=== PATIENT | female | born 1940 | race Caucasian/White ===

== ENCOUNTER 2018-04-30 14:20 | Inpatient (IN) | payer OTHER ==
[~2018-04-30] VITALS: Ht 162.6 cm; Wt 58.1 kg
[2018-04-30 14:59] LABS: ABSOLUTE BASOPHIL COUNT 0.1 /CUMM (0.0-0.2); ABSOLUTE EOSINOPHIL COUNT 0.1 /CUMM (0.0-0.7); ABSOLUTE GRANULOCYTE CT 4.5 /CUMM (1.4-6.5); ABSOLUTE LYMPH COUNT 1.7 /CUMM (1.2-3.4); ABSOLUTE MONOCYTE COUNT 0.5 /CUMM (0.10-0.60); BASOPHIL % 0.8 % (0.0-2.0); EOSINOPHIL % 1.2 % (0-5); GRANULOCYTE % 65.3 % (42.2-75.2); HEMATOCRIT 39.8 % (37-47); MEAN CORPUSCULAR HGB 30.1 PG (27.0-31.0); MEAN CORPUSCULAR HGB CONC 33.7 G/DL (33.0-37.0); MEAN CORPUSCULAR VOLUME 89.6 FL (81.0-99.0); MEAN PLATELET VOLUME 8.6 FL (7.4-10.4); PLATELET COUNT 270 /CUMM (130-400); RBC DISTRIBUTION WIDTH 13.2 % (11.5-14.5); RED BLOOD CELL CT 4.45 /CUMM (4.20-5.40); WHITE BLOOD CELL COUNT 6.9 /CUMM (4.8-10.8)
--- NOTE | 2018-04-30 15:17 | CT SCAN REPORT ---
EXAMINATION: CT HEAD WITHOUT CONTRAST CLINICAL INFORMATION: Vision changes and weakness. COMPARISON: None TECHNIQUE: Contiguous axial imaging was performed from the skull base to vertex without intravenous administration of contrast. DLP: 590.1 mGy-cm FINDINGS: There is no evidence of acute intracranial hemorrhage or territorial infarction. No abnormal mass effect or midline shift is seen. Penny to white matter differentiation is well preserved. No extra-axial fluid collections are identified. The ventricles are normal in size. Mild to moderate chronic white matter microangiopathic changes are noted. The osseous structures and soft tissues are normal. The mastoid air cells and visualized portions of the paranasal sinuses are well aerated. IMPRESSION: No acute intracranial pathology. 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
--- NOTE | 2018-04-30 20:56 | ED GENERAL ADULT ---
History of Present Illness General Chief Complaint: General Adult Stated Complaint: "SEEING WHITE SPOTS AND SLURRING WORDS 1 HOUR AGO" Source: patient, family Exam Limitations: no limitations Vital Signs & Intake/Output Vital Signs & Intake/Output Vital Signs Date Time Temp Pulse Resp B/P B/P Pulse O2 O2 Flow FiO2 Mean Ox Delivery Rate 04/303 77 18 146/98 97 Room Air 04/30 1756 96.9 82 18 163/84 96 Room Air 04/30 1448 98 Room Air 04/30 1429 97.5 82 18 173/87 98 Room Air Allergies Coded Allergies: No Known Allergies (04/30/18) Triage Note: 77F REPORTS DIFFICULTY ARTICULATING THOUGHTS AND WAS TRYING TO READ THE PAPER BUT SAW ODD LIGHT TO THE RIGHT SIDE. SYMPTOMS HAVE SINCE RESOLVED, BUT DOES HAVE MILD PRESSURE TO NASAL/ORBITS. PT THINKS SHE MAY HAVE HAD A TIA. STATES THE SYMPTOMS WERE SIMILAR ON MONDAY AFTER BEING OUTSIDE FOR A WHILE. DENIES ANY EPISODES OF CP/SOB/PALP OR DIAPHORESIS. NO FACIAL ASYMMETRY OBSERVED. SPEECH CLEAR. 5/5 STRENGTH TO ALL EXTREMITIES AND NO DRIFT. +EQUAL SENSATION TO BOTH SIDES. DENIES NUMBNESS OR PARASTHESIA. DENIES FEVERS, NO CERVICAL LYMPHADENOPATHY. HX PARTIAL THYROIDECTOMY, NO NODULES PALPABLE Triage Nurses Notes Reviewed? yes HPI: 77-year-old woman seen for evaluation of word finding difficulty and blurred vision. Patient reports over the weekend she was out in the heat gardening when she had a brief episode of "seeing spots". The episode was self-limited without any associated symptoms. Patient awoke in her normal state of health this morning and sat down to eat lunch with her around noon. During lunch she had a sudden onset episode of "seeing spots/lights" and shortly thereafter had word finding difficulty lasting 10-20 minutes which was all witnessed by her who is present during the interview. Patient's had a TIA several months ago and grew concerned for his 's well-being prompting them to bring her to the [place] ED. Presently she feels well and has no complaints and feels as if she is at her baseline. (Thalia CUEVAS,Rainer) Past History Travel History Traveled to [place] past 21 day No Medical History Any Pertinent Medical History? see below for history Neurological: NONE EENT: NONE Cardiovascular: hyperlipidemia Respiratory: NONE Gastrointestinal: NONE Hepatic: NONE Renal: NONE Musculoskeletal: NONE Psychiatric: NONE Endocrine: hypothyroidism Surgical History Surgical History: none Psychosocial History What is your primary language Chinese Tobacco Use: Never used Family History Hx Contributory? No (Thalia CUEVAS,Rainer) Review of Systems Review of Systems Constitutional: Reports: see HPI. (Thalia CUEVAS,Rainer) Physical Exam Physical Exam General Appearance: well developed/nourished, no apparent distress, alert, awake , comfortable Comments: General - well developed, well nourished elderly woman in no acute distress HEENT - NCAT, PERRLA, EOMI, anicteric sclera Neck- Supple, no JVD/HJR, no bruits, trachea midline, thyroid normal Cardio - S1, S2 w/o murmurs/gallops/rubs; regular rate and rhythm Resp - Clear to auscultation bilaterally GI - Soft, nontender, nondistended, bowel sounds present Neuro - Awake and alert, CN II - XII grossly intact, speech/sensation/ coordination intact, face symmetric, speech fluent, strength 5/54, gait not assessed, passed bedside swallow evaluation Extremities - No edema, pulses intact Core Measures ACS in differential dx? No CVA/TIA Diagnosis: Yes NIH Stroke Scale (24 Hours) NIH Stroke Scale (24 Hours) Response Value Level of Consciousness alert 0 LOC Questions answers both correctly 0 LOC Commands obeys both correctly 0 Best Gaze normal 0 Visual Velazquez no visual loss 0 Facial Paresis normal 0 Motor Arm - Left no drift 0 Motor Arm - Right no drift 0 Motor Leg - Left no drift 0 Motor Leg - Right no drift 0 Limb Ataxia no ataxia 0 Sensory normal 0 Best Language no aphasia 0 Dysarthria normal articulation 0 Extinction and Inattention no neglect 0 Total 0 Date Last Known Well: 04/30/18 Time Last Known Well: 1200 Symptom start date: 04/28/18 tPA Risk/Benefit discussion I have discussed the risks, benefits, and alternatives of Alteplase treatment including: - If given promptly, can resolve or have major improvement in stroke symptoms. - Bleeding (hemorrhage) is the most common risk that can occur. - Bleeding may occur into the brain and cause~terminal supervisor serious disability~ including - this is rare, affecting about 1% of patients. - Alternative treatments with proven benefit for patients with stroke include aspirin and care in a specialized unit where staff members pay careful attention to a variety of basic aspects of care. tPA given? No Reason tPA not given Medical Contraindication Swallow Evaluation Pass Swallow eval date 04/30/18 Swallow eval time 1999 Sepsis Present: No Sepsis Focused Exam Completed? No (Rainer Vásquez MD) Progress Differential Diagnoses I considered the following diagnoses in my evaluation of the patient: TIA, CVA, seizure, heatstroke, dehydration Initial ED EKG: normal axis, normal intervals, normal p-waves, normal QRS complex, normal sinus rhythm Comments: 77-year-old woman with history of hyperlipidemia seen for evaluation of word finding difficulty and blurred vision. Vital signs are significant for a mildly elevated systolic blood pressure that improved without intervention. On exam patient has a normal cardiopulmonary examination with a complete neurologic examination demonstrating no focal neurologic deficits. Labs including CBC, serum chemistry, and troponin remain unremarkable. CT head without IV contrast demonstrated no acute intracranial pathology but did comment on chronic changes. EKG is unremarkable. Patient received aspirin in the ED. She passed a bedside swallow evaluation. Clinically patient appears to have had a transient ischemic attack with no residual neurologic deficits. Patient requires admission to the telemetry floor for continuous telemetry monitoring, carotid Doppler, echocardiogram, antiplatelet therapy, statin therapy, and possibly neurology consultation. (Rainer Vásquez MD) Plan of Care: Orders Procedure Date/time Status Regular Diet 05/01 B Active Admit to inpatient 04/30 2057 Active Vital Signs 04/30 2057 Active Intake & Output 04/30 2057 Active Patient Data 04/30 2054 Active TROPONIN LEVEL 04/30 1427 Complete COMPREHENSIVE METABOLIC PANEL 04/30 1427 Complete CBC WITHOUT DIFFERENTIAL 04/30 1427 Complete EKG 04/30 1427 Active Laboratory Tests 04/30/18 1447: Anion Gap 7, Estimated GFR > 60, BUN/Creatinine Ratio 28.6 H, Glucose 138 H, Calcium 9.3, Total Bilirubin 1.0, AST 22, ALT 25, Alkaline Phosphatase 68, Troponin I < 0.01, Total Protein 6.9, Albumin 4.1, Globulin 2.8, Albumin/ Globulin Ratio 1.5, CBC w Diff NO MAN DIFF REQ, RBC 4.45, MCV 89.6, MCH 30.1, MCHC 33.7, RDW 13.2, MPV 8.6, Gran % 65.3, Lymphocytes % 25.2, Monocytes % 7.5, Eosinophils % 1.2, Basophils % 0.8, Absolute Granulocytes 4.5, Absolute Lymphocytes 1.7, Absolute Monocytes 0.5, Absolute Eosinophils 0.1, Absolute Basophils 0.1 04/30/18 1427: Urine Color Cancelled, Urine Clarity Cancelled, Urine pH Cancelled, Ur Specific [place] Cancelled, Urine Protein Cancelled, Urine Ketones Cancelled, Urine Nitrite Cancelled, Urine Bilirubin Cancelled, Urine Urobilinogen Cancelled, Ur Leukocyte Esterase Cancelled, Ur Microscopic Cancelled, Urine Hemoglobin Cancelled, Urine Glucose Cancelled (Kingsley Vazquez DO) Departure Departure Disposition: STILL A PATIENT Condition: Stable Clinical Impression Primary Impression: TIA (transient ischemic attack) Referrals: Edward Solo MD (PCP/Family) Departure Forms: Customer Survey General Discharge Information Admission Note Spoke With: Rainer Marmolejo MD Documentation of Exam: Documentation of any treatments & extenuating circumstances including Concerns Regarding Discharge (functional status, medication knowledge or non-compliance, living conditions, etc.) that warrant an admission rather than observation: * Telemetry monitoring * Carotid Doppler * Echocardiogram * Aspirin/statin therapy * Physical therapy evaluation * Consider neurology evaluation (Rainer Vásquez MD) Resident Co-Sign Statement Statement: ED Attending supervision documentation- [X] I saw and evaluated the patient. I have also reviewed all the pertinent lab results and diagnostic results. I agree with the findings and the plan of care as documented in the Resident's documentation. [] I have reviewed the ED Record and agree with the Resident's documentation. [] Additions or exceptions (if any) to the Resident's note and plan are summarized below: [] (Kingsley Vazquez DO) Critical Care Note Critical Care Note Critical Care Time: 30-74 min (Rainer Vásquez MD)
--- NOTE | 2018-04-30 23:19 | History & Physical ---
Lasha Mcdermott 04/30/18 2318: General Information and HPI MD Statement: I have seen and personally examined ENEDINA SHAFER and documented this H&P. The patient is a 77 year old F who presented with a patient stated chief complaint of NEUROLOGICAL COMPLAINTS, INCLUDING SPEECH DIFFICULTY AND VISUAL ABNORMALITIES. Source of Information: patient Exam Limitations: no limitations History of Present Illness: 77-year-old female with past medical history of hypothyroidism and hyperlipidemia presents with acute onset difficulty word finding and visual complaints. She states over the weekend she was in the garden, she had a brief episode of seeing spots and felt weird and lasted only a moment which he contributed to the outside heat. She had no other symptoms. Today she was in her normal state of health until noon when she states she started to see a small light when reading the newspaper, an episode of word finding difficulty that lasted 10-20 minutes which was witnessed by her . She states that her had a TIA a few months ago, and was concerned and insisted that she come to [facility] for evaluation. When she arrived in the ED, all her symptoms were completely resolved. Review of systems is negative for headaches, visual loss, hearing loss, dysphagia, fevers, chills, confusion, seizures, chest pain, palpitations, and neurologic exam was nonfocal. In the ED, EKG was found to be normal sinus rhythm, laboratory was unremarkable, and CT head showed no acute intracranial pathology. Patient was admitted to telemetry for concern of TIA/CVA. Allergies/Medications Allergies: Coded Allergies: No Known Allergies (04/30/18) Compliance With Home Meds: GOOD Past History Travel History Traveled to [place] past 21 day No Medical History Neurological: NONE EENT: NONE Cardiovascular: hyperlipidemia Respiratory: NONE Gastrointestinal: NONE Hepatic: NONE Renal: NONE Musculoskeletal: NONE Psychiatric: NONE Endocrine: hypothyroidism Surgical History Surgical History: none Past Family/Social History Psychosocial History Where do you live? Home Who Do You Live With? spouse Services at Home: None Smoking Status: Never Smoked ETOH Use: denies use Illicit Drug Use: denies illicit drug use Functional Ability ADLs Independent: dressing, eating, toileting, bathing. Ambulation: independent IADLs Independent: shopping, housework, finances, food prep, telephone, transportation , medication admin. Review of Systems Review of Systems Constitutional: Denies: chills, fever. EENTM: Reports: visual changes. Denies: throat pain. Cardiovascular: Denies: chest pain, palpitations, syncope. Respiratory: Denies: cough, short of breath. GI: Denies: abdominal pain, diarrhea, nausea, vomiting. Genitourinary: Denies: dysuria, frequency. Musculoskeletal: Reports: no symptoms. Skin: Reports: no symptoms. Neurological/Psychological: Reports: see HPI. Hematologic/Endocrine: Reports: no symptoms. Immunologic/Allergic: Reports: no symptoms. All Other Systems: Reviewed and Negative Exam & Diagnostic Data Last 24 Hrs of Vital Signs/I&O Vital Signs Date Time Temp Pulse Resp B/P B/P Pulse O2 O2 Flow FiO2 Mean Ox Delivery Rate 04/30 1913 77 18 146/98 97 Room Air 04/30 1756 96.9 82 18 163/84 96 Room Air 04/30 1448 98 Room Air 04/30 1429 97.5 82 18 173/87 98 Room Air Intake & Output 05/01 0800 05/01 0000 04/30 1600 Intake Total Output Total Balance Patient 128 lb Weight Weight Reported by Patient Measurement Method Physical Exam General Appearance Alert, Oriented X3, Cooperative, No Acute Distress Skin No Rashes, No Breakdown, No Significant Lesion Skin Temp/Moisture Exam: Warm/Dry HEENT Atraumatic, PERRLA, EOMI, Mucous Membr. moist/pink Neck Supple, No JVD, No thryomegaly Cardiovascular Regular Rate, Normal S1, Normal S2, No Murmurs, Gallops, Rubs Lungs Clear to Auscultation, Normal Air Movement Abdomen Normal Bowel Sounds, Soft, No Tenderness, No Masses Neurological Normal Speech, Strength at 5/5 X4 Ext, Normal Tone, Sensation Intact, Cranial Nerves 3-12 NL, NIHSS 0 Extremities No Clubbing, No Cyanosis, No Edema, Normal Pulses, No Tenderness/ Swelling Last 24 Hrs of Labs/Herber: Laboratory Tests 04/30/18 1447: Anion Gap 7, Estimated GFR > 60, BUN/Creatinine Ratio 28.6 H, Glucose 138 H, Calcium 9.3, Total Bilirubin 1.0, AST 22, ALT 25, Alkaline Phosphatase 68, Troponin I < 0.01, Total Protein 6.9, Albumin 4.1, Globulin 2.8, Albumin/ Globulin Ratio 1.5, CBC w Diff NO MAN DIFF REQ, RBC 4.45, MCV 89.6, MCH 30.1, MCHC 33.7, RDW 13.2, MPV 8.6, Gran % 65.3, Lymphocytes % 25.2, Monocytes % 7.5, Eosinophils % 1.2, Basophils % 0.8, Absolute Granulocytes 4.5, Absolute Lymphocytes 1.7, Absolute Monocytes 0.5, Absolute Eosinophils 0.1, Absolute Basophils 0.1 04/30/18 1427: Urine Color Cancelled, Urine Clarity Cancelled, Urine pH Cancelled, Ur Specific Topaz Cancelled, Urine Protein Cancelled, Urine Ketones Cancelled, Urine Nitrite Cancelled, Urine Bilirubin Cancelled, Urine Urobilinogen Cancelled, Ur Leukocyte Esterase Cancelled, Ur Microscopic Cancelled, Urine Hemoglobin Cancelled, Urine Glucose Cancelled Diagnostic Data EKG Results NSR, no ischemic changes Other Results Noncontrast CT head - No acute intracranial pathology. Assessment/Plan Assessment: 77-year-old female with past medical history of hypothyroidism and hyperlipidemia presents with acute onset visual complaints and expressive aphasia. Problem list/plan: TIA -Admit to telemetry to monitor arrhythmia -Carotid doppler -Echocardiogram -Anticoagulation with full dose aspirin -High dose statin -Neurology consult HLD -Continue statin Hypothyroidism -Continue synthroid DVT prophylaxis: Subcu heparin and ALPS Heart healthy diet Patient is full code As Ranked By This Provider Problem List: 1. TIA (transient ischemic attack) Core Measures/Misc (05/28) Acute Coronary Syndrome ACS Diagnosis: No Congestive Heart Failure Congestive Heart Failure Diagnosis No Cerebrovascular Accident CVA/TIA Diagnosis: Yes NIH Stroke Scale: Total 0 Date Last Known Well: 04/30/18 Time Last Known Well: 1200 Symptom Start Date: 04/28/18 tPA given? No Reason tPA not ordered Medical Contraindication Swallow Evaluation Pass Current/Past Hx AFib/AFlutter No VTE (View Protocol) VTE Risk Factors Acute Medical Illness No Mechanical VTE Prophylaxis d/t N/A MechProphylax Ordered No VTE Pharm Prophylaxis d/t NA PharmProphylax ordered Sepsis (View protocol) Sepsis Present: No If YES complete Sepsis Event Note If YES complete Sepsis Event Note Jesus Lyman MD 05/01/18 0214: General Information and HPI MD Statement: I have seen and personally examined ENEDINA SHAFER and documented this H&P. The patient is a 77 year old F who presented with a patient stated chief complaint of neurological complaints. Source of Information: patient Exam Limitations: no limitations History of Present Illness: 77 year old female with past medical history of hypothyroidism and hyperlipidemia presents with acute onset visual complaints and expressive aphasia. She states over the weekend she was out in the nursery gardening, she had a brief episode of "seeing spots" that felt weird and lasted only transiently, she attributed it to the heat oustide. She had no associated symptoms. Today she was in her normal state of health until around noon today she states she started to see a smal bright light when going to read the paper and then had an episode of word finding difficulty that lasted 10-20 minutes and was witnessed by her . He had a TIA several months ago and grew concerned for his 's well-being prompting them to come to [facility] for evaluation. By the time of arrival, all her symptoms were completely resolved. Her review of systems is negative for headache, visual loss, hearing loss, dysphagia, fevers, chills, confusion, seizures, chest pain, palpitations, or focal weakness/numbness. She had a negative noncontrast Head CT, unremarkable blood work, and was admitted to telemetry for atrial fibrillation Allergies/Medications Home Med list Atorvastatin Calcium (Lipitor) 10 MG TABLET 1 TAB PO DAILY HLD (Reported) Levothyroxine Sodium (Synthroid) 88 MCG TABLET 1 TAB PO DAILY HYPOTHYROID ( Reported) Compliance With Home Meds: GOOD Past History Medical History Neurological: NONE Cardiovascular: hyperlipidemia Respiratory: NONE Gastrointestinal: NONE Endocrine: hypothyroidism Surgical History Surgical History: hysterectomy, partial thyroidectomy Past Family/Social History Family History Relations & Conditions if any FATHER FH: myocardial infarction, Onset: 60+. Psychosocial History Where do you live? Home Services at Home: None Smoking Status: Never Smoked ETOH Use: denies use Illicit Drug Use: denies illicit drug use Functional Ability ADLs Independent: dressing, eating, toileting, bathing. Ambulation: independent IADLs Independent: shopping, housework, finances, food prep, telephone, transportation , medication admin. Review of Systems Review of Systems Constitutional: Denies: chills, fever. EENTM: Reports: visual changes. Denies: throat pain. Cardiovascular: Denies: chest pain, palpitations, syncope. Respiratory: Denies: cough, short of breath. GI: Denies: abdominal pain, diarrhea, nausea, vomiting. Genitourinary: Denies: dysuria, frequency. Musculoskeletal: Reports: no symptoms. Skin: Reports: no symptoms. Neurological/Psychological: Reports: see HPI. Hematologic/Endocrine: Reports: no symptoms. Immunologic/Allergic: Reports: no symptoms. All Other Systems: Reviewed and Negative Exam & Diagnostic Data Last 24 Hrs of Vital Signs/I&O Vital Signs Date Time Temp Pulse Resp B/P B/P Pulse O2 O2 Flow FiO2 Mean Ox Delivery Rate 04/30 1913 77 18 146/98 97 Room Air 04/30 1756 96.9 82 18 163/84 96 Room Air 04/30 1448 98 Room Air 04/30 1429 97.5 82 18 173/87 98 Room Air Intake & Output 05/01 0800 05/01 0000 04/30 1600 Intake Total Output Total Balance Patient 58.06 kg Weight Weight Reported by Patient Measurement Method Physical Exam General Appearance Alert, Oriented X3, Cooperative, No Acute Distress Cardiovascular Regular Rate, Normal S1, Normal S2, No Murmurs Lungs Clear to Auscultation, Normal Air Movement Abdomen Normal Bowel Sounds, Soft, No Tenderness, No Masses Neurological Normal Gait, Normal Speech, Strength at 5/5 X4 Ext, Normal Tone, Sensation Intact, Cranial Nerves 3-12 NL, Reflexes 2+, NIHSS 0 Extremities No Clubbing, No Cyanosis, No Edema, Normal Pulses Last 24 Hrs of Labs/Herber: Laboratory Tests 04/30/181446: Anion Gap 7, Estimated GFR > 60, BUN/Creatinine Ratio 28.6 H, Glucose 138 H, Calcium 9.3, Total Bilirubin 1.0, AST 22, ALT 25, Alkaline Phosphatase 68, Troponin I < 0.01, Total Protein 6.9, Albumin 4.1, Globulin 2.8, Albumin/ Globulin Ratio 1.5, CBC w Diff NO MAN DIFF REQ, RBC 4.45, MCV 89.6, MCH 30.1, MCHC 33.7, RDW 13.2, MPV 8.6, Gran % 65.3, Lymphocytes % 25.2, Monocytes % 7.5, Eosinophils % 1.2, Basophils % 0.8, Absolute Granulocytes 4.5, Absolute Lymphocytes 1.7, Absolute Monocytes 0.5, Absolute Eosinophils 0.1, Absolute Basophils 0.1 04/30/181426: Urine Color Cancelled, Urine Clarity Cancelled, Urine pH Cancelled, Ur Specific Topaz Cancelled, Urine Protein Cancelled, Urine Ketones Cancelled, Urine Nitrite Cancelled, Urine Bilirubin Cancelled, Urine Urobilinogen Cancelled, Ur Leukocyte Esterase Cancelled, Ur Microscopic Cancelled, Urine Hemoglobin Cancelled, Urine Glucose Cancelled Diagnostic Data EKG Results SR, borderline LAD, no ischemic changes Other Results Non contrast head CT There is no evidence of acute intracranial hemorrhage or territorial infarction. No abnormal mass effect or midline shift is seen. Penny to white matter differentiation is well preserved. No extra-axial fluid collections are identified. The ventricles are normal in size. Mild to moderate chronic white matter microangiopathic changes are noted. The osseous structures and soft tissues are normal. The mastoid air cells and visualized portions of the paranasal sinuses are well aerated. IMPRESSION: No acute intracranial pathology. 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 Assessment/Plan Assessment: 77 year old female with PMH significant for HLD and hypothyroidism presents with several days of intermittent neurological symptoms including visual changes and word finding difficulties. Head CT negative with symptom resolution on arrival, admitted with TIA. TIA: Admit to telemetry to monitor for arrhythmia Carotid Doppler Echocardiogram Antiplatelet therapy with full dose aspirin High intensity statin, check lipid panel Neurology consultation HLD: Continue statin Check TSHR Hypothyroidism: Continue synthroid 88mcg daily Heart healthy diet DVT ppx-lovenox sc Full code As Ranked By This Provider Problem List: 1. TIA (transient ischemic attack) Core Measures/Misc (05/28) Acute Coronary Syndrome ACS Diagnosis: No Congestive Heart Failure Congestive Heart Failure Diagnosis No Cerebrovascular Accident CVA/TIA Diagnosis: Yes NIH Stroke Scale: Total 0 Date Last Known Well: 04/30/18 Time Last Known Well: 1200 Symptom Start Date: 04/28/18 tPA Risk/Benefit discussion I have discussed the risks, benefits, and alternatives of Alteplase treatment including: - If given promptly, can resolve or have major improvement in stroke symptoms. - Bleeding (hemorrhage) is the most common risk that can occur. - Bleeding may occur into the brain and cause~senior care serious disability~ including - this is rare, affecting about 1% of patients. - Alternative treatments with proven benefit for patients with stroke include aspirin and care in a specialized unit where staff members pay careful attention to a variety of basic aspects of care. tPA given? No Reason tPA not ordered Medical Contraindication Swallow Evaluation Pass Current/Past Hx AFib/AFlutter No VTE (View Protocol) VTE Risk Factors Acute Medical Illness No Mechanical VTE Prophylaxis d/t N/A MechProphylax Ordered No VTE Pharm Prophylaxis d/t NA PharmProphylax ordered Sepsis (View protocol) Sepsis Present: No If YES complete Sepsis Event Note If YES complete Sepsis Event Note Rainer Marmolejo MD 05/01/18 0648: Core Measures/Misc (05/28) Sepsis (View protocol) If YES complete Sepsis Event Note If YES complete Sepsis Event Note Attending MD Review Statement Attending Statement Attending MD Statement: examined this patient, discuss w/resident/PA/SUSTAINABLE LANDSCAPE ARCHITECT, agreed w/resident/PA/SUSTAINABLE LANDSCAPE ARCHITECT Attending Assessment/Plan: Patient is seen and examined independently by me. Care plan discussed with medical typist and resident. I agree with the physical exam findings and plan of care as outlined above with the following changes and additions. 77 yo F history of HLD, hypothyroidism after thyroidectomy presented with visual changes and expressive aphasia. On Monday, patent has a brief episode of blurred vision which she described as it lasted "a very short time". She has no slurred speech, weakness or numbness associated with it. Today about noon while she was reading the paper, she was seeing lights but still able to read the words on the paper. However, she also has difficulty saying words. For example, she is thinking about cookie but unable to say the word "cookie". These symptoms lasted for few minutes. She has no other complaints. In the ED, her speech is normal. She has no blurred vision or seeing lights. CT head shows no acute intracranial abnormality. EKG shows NSR at [address]-T changes. Patient is admitted to [facility] for TIA. Cardiac monitoring. Start ASA. On statin. Echocardiogram. Carotid Doppler. Speech therapy. Neuro consult. Rainer Marmolejo MD FACP
[2018-05-01] MEDS ORDERED: LIPITOR40 M1 PO (02:39)
[2018-05-01] MEDS ORDERED: SYNTHROID88 MCG PO (02:39)
--- NOTE | 2018-05-01 08:05 | PN- Housestaff ---
Jb CUEVAS,Beatriz 05/01/18 0805: Subjective Follow-up For: TIA Complaints: no complaints Subjective: Patient seen and examined at the bedside. She was not having active complaints. She told that she does not have any residual, deficit. She is able to speak out on the sentences completely. Review of Systems Constitutional: Denies: no symptoms. Objective Last 24 Hrs of Vital Signs/I&O Vital Signs Date Time Temp Pulse Resp B/P B/P Pulse O2 O2 Flow FiO2 Mean Ox Delivery Rate 05/01 1407 98.4 87 18 134/69 98 05/01 0728 97.8 67 20 130/72 95 Room Air 05/01 0556 96.7 74 15 137/74 97 Room Air 04/30 1913 77 18 146/98 97 Room Air 04/30 1756 96.9 82 18 163/84 96 Room Air Intake & Output 05/01 1600 05/01 0800 05/01 0000 Intake Total 500 Output Total Balance 500 Intake, IV 20 Intake, Oral 480 Patient 58.06 kg Weight Weight Reported by Patient Measurement Method Physical Exam General Appearance: Alert, Oriented X3, Cooperative, No Acute Distress Cardiovascular: Normal S1, Normal S2 Lungs: Clear to Auscultation, Normal Air Movement Abdomen: Soft, No Tenderness Neurological: Normal Gait, Normal Speech, Strength at 5/5 X4 Ext, Normal Tone, Sensation Intact, Cranial Nerves 3-12 NL, Reflexes 2+ Extremities: No Clubbing, No Cyanosis, No Edema Vascular: Normal Pulses, Pulses Symmetrical Current Medications: Current Medications Sig/Jeff Start time Last Medication Dose Route Stop Time Status Admin Acetaminophen 650 MG Q6P PRN 04/305 AC PO Aspirin 325 MG DAILY 05/01 900 AC 05/01 PO 1044 Aspirin 0 .STK-MED ONE 04/30 2049 DC PO Aspirin 81 MG ONCE ONE 04/30 2045 DC 04/30 PO 04/30 Aspirin Buffered 81 MG DAILY 05/01 09 CAN PO Atorvastatin Calcium 40 MG 1700 05/01 1700 AC PO Enoxaparin Sodium 40 MG DAILY 05/01 09 AC 05/01 SC 1044 Levothyroxine Sodium 0.088 MG DAILY AC 05/01 0700 AC 05/01 PO 0731 Last 24 Hrs of Lab/Herber Results Last 24 Hrs of Labs/Mics: Laboratory Tests 05/01/18 0549: Anion Gap 7, Estimated GFR > 60, BUN/Creatinine Ratio 23.3, Troponin I < 0.01, Triglycerides 74, Cholesterol 182, LDL Cholesterol, Calc 90, HDL Cholesterol 78 H, Cholesterol/HDL Ratio 2, TSH &T3 &Free T4 Intrp 1.670 Assessment/Plan Assessment: Patient is a 77-year-old female with past medical history of hypothyroidism presented with the chief complaints of acute onset difficulty word finding and visual complaints. Vital signs-temperature 98.4, pulse 87, respiratory rate 18, blood pressure 134/ 69, SPO2 98% on room air. Blood workup-CBC and BMP was within normal limits. Serial troponins were negative. Lipid profile showed triglycerides 74, cholesterol 182, LDL 90, HDL 78, TSH-1.670. Transient ischemic attack, rule out stroke We admitted the patient to telemetry floor. Noncontrast CT scan of the head did not show any acute intracranial pathology. There was mild to moderate chronic white matter microangiopathy. Carotid Dopplers show a small amount of plaque in right internal carotid artery velocity of the blood flow was normal. There was no hemodynamically significant stenosis. Discussed with Dr. Alexander advised to continue patient on aspirin, high- dose atorvastatin. We discharged her with advised to follow-up with her primary care provider within a week of discharge. we also advised her if she developed a new strokelike symptoms that she need to come back to emergency department. Hypothyroidism - We continued the same home doses of levothyroxine. Problem List: 1. TIA (transient ischemic attack) Pain Ratin Pain Location: N/A Pain Goal: Remain pain free Pain Plan: N/A Tomorrow's Labs & Rationales: N/A Britni Elliott MD 05/01/18 1618: Attending MD Review Statement Attending Statement Attending MD Statement: examined this patient, discuss w/resident/PA/JUNIOR SALES REPRESENTATIVE, agreed w/resident/PA/JUNIOR SALES REPRESENTATIVE, reviewed EMR data (avail) Attending Assessment/Plan: 77F PMH HLD, hypothyroidism who was admitted overnight after experiencing word- finding difficulties that lasted for about 10 minutes, consistent with TIA. Patient has been at her baseline and asymptomatic since. She has never had similar symptoms before and never been diagnosed with TIA/stroke. Her neuro exam is completely normal. No telemetry events. EKG NSR. CT head negative, carotid doppler negative, echocardiogram done. 1. TIA Plan - Patient is stable for discharge home - Increase Atorvastatin to 40mg - Start ASA - Continue home medications - Outpatient follow up with her PCP
--- NOTE | 2018-05-01 10:51 | ULTRASOUND REPORT ---
EXAMINATION: DUPLEX BILATERAL CAROTID ULTRASOUND CLINICAL INFORMATION: ICA occlusion COMPARISON: None. TECHNIQUE: Duplex bilateral carotid US was performed using real-time ultrasound and Doppler techniques (integrating B-mode 2D vascular images, Doppler spectral analysis and color flow Doppler imaging). These techniques were utilized to interrogate the extracranial carotid and vertebral arteries bilaterally. The degree of stenosis is based off criteria similar to NASCET. FINDINGS: 1. On the right: A small amount of plaque is present at the carotid bifurcation but velocity measurements are normal and do not suggest a stenosis of greater than 50% diameter reduction in the right ICA. The vertebral artery is patent demonstrating antegrade flow. 2. On the left: A small amount of plaque is present at the carotid bifurcation but velocity measurements are normal and do not suggest a stenosis of greater than 50% diameter reduction in the left ICA. The vertebral artery is patent demonstrating antegrade flow. The external carotid arteries appear unremarkable. IMPRESSION: A small amount of plaque is present in the internal carotid arteries but velocity measurements are normal and there is no evidence to suggest a hemodynamically significant stenosis of greater than 50% diameter reduction.
[2018-05-01] MEDS ORDERED: ASPIRIN325 M2 PO (11:55)
[2018-05-01] MEDS ORDERED: ATORVASTATIN CA40 M1 PO (11:56)
--- NOTE | 2018-05-01 12:02 | Patient Discharge Instructions ---
Discharge Instructions General Discharge Information You were seen/treated for: Difficulty in speaking. Special Instructions: Please follow-up with your PCP within a week of discharge. Please take the medication as advised. you need to follow neurologist within a month of discharge. If you started having strokelike symptoms, please come back to ED. Diet Recommended Diet: Heart Healthy Acute Coronary Syndrome Inclusion Criteria At DC or during hospital stay patient has or had the following: ACS DIAGNOSIS No Discharge Core Measures Meds if any: Prescribed or Continued at Discharge Meds if any: NOT Prescribed or Continued at Discharge Congestive Heart Failure Inclusion Criteria At DC or during hospital stay patient has or had the following: CHF DIAGNOSIS No Discharge Core Measures Meds if any: Prescribed or Continued at Discharge Meds if any: NOT Prescribed or Continued at Discharge Cerebrovascular accident Inclusion Criteria At DC or during hospital stay patient has or had the following: CVA/TIA Diagnosis Yes Discharge Core Measures Meds if any: Prescribed or Continued at Discharge Antithrombotic Yes Statin (required if LDL =>70) Yes Anticoagulant No Meds if any: NOT Prescribed or Continued at Discharge Venous thromboembolism Inclusion Criteria VTE Diagnosis No VTE Type NONE VTE Confirmed by (Test) NONE Discharge Core Measures - Per Current guidelines, there needs to be overlap - treatment for the first 5 days of Warfarin therapy. - If discharged on Warfarin prior to 5 days of - overlap therapy, the patient will need to be - assessed for post discharge needs including - *Post discharge parental anticoagulation - *Warfarin and/or parental anticoagulation education - *Follow up date to check INR post discharge At least 5 days overlap therapy as Inpatient No Meds if any: Prescribed or Continued at Discharge Note: Overlap Therapy is Warfarin and Anticoagulant Meds if any: NOT Prescribed or Continued at Discharge
--- NOTE | 2018-05-01 12:06 | Discharge Summary ---
Visit Information Visit Dates Admission Date: 04/30/18 Discharge Date: 05/01/2018 Hospital Course Course Attending Physician: Britni Elliott MD Primary Care Physician: Edward Solo MD Hospital Course: Patient is a 77-year-old female with past medical history of hypothyroidism presented with the chief complaints of acute onset difficulty word finding and visual complaints. Blood workup-CBC and BMP was within normal limits. Serial troponins were negative. Lipid profile showed triglycerides 74, cholesterol 182, LDL 90, HDL 78, TSH-1.670. Transient ischemic attack, rule out stroke We admitted the patient to telemetry floor. Noncontrast CT scan of the head did not show any acute intracranial pathology. There was mild to moderate chronic white matter microangiopathy. Carotid Dopplers show a small amount of plaque in right internal carotid artery velocity of the blood flow was normal. There was no hemodynamically significant stenosis. Echo -LVEF 70%. Discussed with Dr. Alexander advised to continue patient on aspirin, high-dose atorvastatin.We discharged her with advised to follow-up with her primary care provider within a week of discharge. We also advised her if she developed a new stroke like symptoms that she need to come back to emergency department. Hypothyroidism - We continued the same home doses of levothyroxine. Allergies: Coded Allergies: No Known Allergies (04/30/18) Disposition Summary Disposition Principal Diagnosis: Transient ischemic attack Additional Diagnosis: Hypothyroidism Discharge Disposition: home or self care Discharge Instructions General Discharge Information Code Status: Full Code Patient's Diet: Heart healthy diet Patient's Activity: Please take all fall precautions Follow-Up Instructions/Appts: Advised to follow-up with the primary care provider within a week of discharge Advised to follow-up with your neurologist within a month of discharge. Medications at Discharge Discharge Medications: Start taking the following new medications: Aspirin (Aspirin*) 325 MG TABLET 325 Milligram ORAL DAILY Qty = 60 No Refills Comments: Last Taken:05/01/18 Time: 10:45 AM Atorvastatin Calcium (Atorvastatin Calcium) 40 MG TABLET 40 Milligram ORAL 5 PM as needed for HYPERTENSION Qty = 90 No Refills Copies To: Edward Solo MD, MD Review Statement Documenting Attending: Britni Elliott MD Copies To: Edward Solo MD, MD Review Statement Documenting Attending: Britni Elliott MD
[2018-05-01 14:07] VITALS: BP 134/69
[2018-05-01] MEDS ORDERED: ATORVASTATIN CA10 M1 PO (15:39)
--- NOTE | 2018-05-01 16:01 | ECHOCARDIOGRAM REPORT ---
ENEDINA SHAFER Age: 77 : 1940 Gender: F Exam Date: 05/01/2018 14:07 Exam Location: ER Ht (in): 64 Wt (lb): 128 BSA: 1.62 BP: 130 / 72 Ordering Physician: Jesus Lyman MD Referring Physician: Jesus Lyman MD Technologist: Lillian Ornelas RDCS Room Number: [id number] Indications: Stroke Rhythm: Sinus Technical Quality: good FINDINGS Left Ventricle Normal left ventricular size, wall thickness and systolic function with no obvious regional wall motion abnormalities. Normal left ventricular diastolic filling pattern for age. The ejection fraction is visually estimated at 70%. Right Ventricle The right ventricle is normal in size and function. Right Atrium The right atrium is normal in size. Left Atrium The left atrium is normal in size. The interatrial septum is intact. Mitral Valve The mitral valve is normal in structure and function. There is mild mitral regurgitation. Aortic Valve Structurally normal aortic valve without significant sclerosis or stenosis. There is no aortic regurgitation. Tricuspid Valve The tricuspid valve is normal in structure and function. There is mild tricuspid regurgitation. Pulmonary artery systolic pressure is normal. Pulmonic Valve Structurally normal pulmonic valve. There is no pulmonic regurgitation. Pericardium Normal pericardium without effusion. No pleural effusion. Great Vessels Normal aortic root dimension. The aortic arch and great vessels are well seen and are normal. CONCLUSIONS 1. Normal EF of 70%. 2. Mild mitral regurgitation. 3. Mild tricuspid regurgitation. Gabriele Tejeda M.D. (Electronically Signed) Final Date: 01 May 2018 15:56 MEASUREMENTS (Male / Female) Normal Values 2D ECHO LV Diastolic Diameter PLAX 4.4 cm 4.2 - 5.9 / 3.9 - 5.3 cm LV Systolic Diameter PLAX 2.4 cm 2.1 - 4.0 cm LV Fractional Shortening PLAX 45.5 % 25 - 46 % LV Ejection Fraction 2D Teich 77.0 % IVS Diastolic Thickness 1.0 cm LVPW Diastolic Thickness 1.0 cm LV Relative Wall Thickness 0.5 RV Internal Dim ED PLAX 2.7 cm 1.9 - 3.8 cm LVOT Diameter 1.8 cm Aortic Root Diameter 3.2 cm LA Volume 22.0 cm 18 - 58 / 22 - 52 cm Ascending Aorta Diameter 3.3 cm DOPPLER AV Peak Velocity 140.0 cm/s AV Peak Gradient 7.8 mmHg AV Mean Velocity 93.4 cm/s AV Mean Gradient 4.0 mmHg AV Velocity Time Integral 29.4 cm LVOT Peak Velocity 138.0 cm/s LVOT Peak Gradient 7.6 mmHg LVOT Mean Velocity 89.6 cm/s LVOT Mean Gradient 4.0 mmHg LVOT Velocity Time Integral 24.4 cm LVOT Stroke Volume 62.1 cm AV Area Cont Eq vti 2.1 cm AV Area Cont Eq pk 2.5 cm MV Peak Velocity 81.0 cm/s MV Peak Gradient 2.6 mmHg MV Mean Velocity 54.7 cm/s MV Mean Gradient 1.0 mmHg Mitral E Point Velocity 59.2 cm/s Mitral A Point Velocity 62.2 cm/s Mitral E to A Ratio 1.0 MV PHT Velocity 86.0 cm/s MV Deceleration Bartholomew 645.0 cm/s MV Pressure Half Time 40.0 ms MV Area PHT 5.5 cm MV Deceleration Time 415.0 ms TR Peak Velocity 225.0 cm/s TR Peak Gradient 20.3 mmHg Right Atrial Pressure 5.0 mmHg Pulmonary Artery Systolic Pressure 25.3 mmHg Right Ventricular Systolic Pressure 25.3 mmHg PV Peak Velocity 105.0 cm/s PV Peak Gradient 4.4 mmHg PV Mean Velocity 80.3 cm/s PV Mean Gradient 3.0 mmHg PV Velocity Time Integral 24.0 cm LV E' Lateral Velocity 18.5 cm/s Mitral E to LV E' Lateral Ratio 3.2 LV E' Septal Velocity 9.0 cm/s Mitral E to LV E' Septal Ratio 6.6
--- NOTE | 2018-05-01 16:08 | Cons- Neurology ---
General Information and HPI Consulting Request Date of Consult: 05/01/18 Requested By: Britni Elliott MD Reason for Consult: TIA? Source of Information: patient Exam Limitations: no limitations History of Present Illness: This is a pleasant 77 year old woman who presented to the hospital after developing an event consisting of trouble expressing herself (not fully) and some visual obscurations. This lasted less than 10 minutes. She has had another odd event a few weeks ago. She therefore came to the ER where her BP was found to be very high. She has been fine since and Echo, CD and telemetry have been unervealing. Allergies/Medications Allergies: Coded Allergies: No Known Allergies (04/30/18) Home Med List: Aspirin (Aspirin*) 325 MG TABLET 325 MG PO DAILY CVA Atorvastatin Calcium 10 MG TABLET 1 TAB PO DAILY CHOLESTEROL (Reported) Atorvastatin Calcium 40 MG TABLET 40 MG PO 1700 PRN HYPERTENSION Levothyroxine Sodium (Synthroid) 88 MCG TABLET 1 TAB PO MON-SAT HYPOTHYROID ( Reported) Current Medications: Current Medications Sig/Jeff Start time Last Medication Dose Route Stop Time Status Admin Acetaminophen 650 MG Q6P PRN 04/30 2345 AC PO Aspirin 325 MG DAILY 05/01 0900 AC 05/01 PO 1044 Aspirin 0 .STK-MED ONE 04/30 2049 DC PO Aspirin 81 MG ONCE ONE 04/30 2045 DC 04/30 PO 04/30 2046 2109 Aspirin Buffered 81 MG DAILY 05/01 0900 CAN PO Atorvastatin Calcium 40 MG 1700 05/01 1700 AC PO Enoxaparin Sodium 40 MG DAILY 05/01 0900 AC 05/01 SC 1044 Levothyroxine Sodium 0.088 MG DAILY AC 05/01 0700 AC 05/01 PO 0731 Review of Systems Review of Systems: As per HPI. Past History Travel History Traveled to [place] past 21 day No Medical History Neurological: NONE EENT: NONE Cardiovascular: hyperlipidemia Respiratory: NONE Gastrointestinal: NONE Hepatic: NONE Renal: NONE Musculoskeletal: NONE Psychiatric: NONE Endocrine: hypothyroidism Surgical History Surgical History: 1 Family History Relations & Conditions If Any: FATHER FH: myocardial infarction, Onset: 60+. Psychosocial History Where Do You Live? Home Who Do You Live With? spouse Services at Home: None Smoking Status: Never Smoked ETOH Use: denies use Illicit Drug Use: denies illicit drug use Functional Ability ADLs Independent: dressing, eating, toileting, bathing. Ambulation: independent IADLs Independent: shopping, housework, finances, food prep, telephone, transportation , medication admin. Exam & Diagnostic Data Vital Signs and I&O FINDINGS: There is no evidence of acute intracranial hemorrhage or territorial infarction. No abnormal mass effect or midline shift is seen. Penny to white matter differentiation is well preserved. No extra-axial fluid collections are identified. The ventricles are normal in size. Mild to moderate chronic white matter microangiopathic changes are noted. The osseous structures and soft tissues are normal. The mastoid air cells and visualized portions of the paranasal sinuses are well aerated. IMPRESSION: No acute intracranial pathology. 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 CD and Echo wnl. Vital Signs Date Time Temp Pulse Resp B/P B/P Pulse O2 O2 Flow FiO2 Mean Ox Delivery Rate 05/01 1407 98.4 87 18 134/69 98 05/01 0728 97.8 67 20 130/72 95 Room Air 05/01 0556 96.7 74 15 137/74 97 Room Air 04/30 1913 77 18 146/98 97 Room Air 04/30 1756 96.9 82 18 163/84 96 Room Air Intake & Output 05/01 1600 05/01 0800 05/01 0000 Intake Total 500 Output Total Balance 500 Intake, IV 20 Intake, Oral 480 Patient 128 lb Weight Weight Reported by Patient Measurement Method Physical Exam: General: The patient is in no distress. Pleasant and cooperative. MSE: Alert and oriented 3. Good attention and concentration. Good short-term memory and fund of knowledge reflected through our conversation. Language is fluent with good comprehension and repetition. Cardiovascular: S1 and S2 are normal, regular rate and rhythm, and normal pedal pulses. Vision: Fundoscopic exam does not reveal any abnormalties. Visual valderrama are intact. Neurological: Extra ocular movements intact, TONY, face is symmetric, tongue midline, uvula raises equally in the midline, V1-V3 sensation to touch is intact and equal bilaterallty, sternocleidomastoid and trapezius are strong on both sides, muscles of mastication are strong. No dysarthria noted. Motor exam reveals no abnormality of strength. Power is 5-5 throughout the distribution distally and proximally. Sensory exam did not reveal any deficits to touch, temperature, vibration and proprioception. Reflexes are symmetric bilaterally. Cerebellar exam does not reveal any dysmetria. Rapid alternating movements are intact bilaterally. Gait is steady with normal base. Assessment/Plan Assessment: 77 ye ar old woman with a possible TIA. Recommendations: 1. Increase Atorvastain to 40mg and continue with baby aspirin. 2. Follow up with cards and neuro to see if needs addition of ARB/HO. 3. Discussed stroke symptoms and need to come in within 3 hours if they arise. [facility] Consult Acknowledgment - Thank you for your consult request.
== END 2018-05-01 16:15 | DRG 69 ==
LOC: ERH 14:20 → ERHI 20:57 → ENRESERV 05-01 11:57 → CMPBEDREQ 05-01 15:57 → ERHI 05-01 16:15
PROVIDERS: Physician Assistant Medical; Preventive Medicine Public Health & General Preventive Medicine
DX: G45.9 Transient cerebral ischemic attack, unspecified (principal); E78.5 Hyperlipidemia, unspecified; E03.9 Hypothyroidism, unspecified
CPT/HCPCS: ERO; 82436; 93005; 93010; 93306; 99291; J1650; J3490